=== PATIENT | female | born 1960 | race American Indian/Alaskan Native ===

== ENCOUNTER 2020-09-19 09:14 | Outpatient (CLI) | payer OTHER | END 2020-09-19 09:15 | disposition home or self-care (01) | LOC: PF 09:14 | PROVIDERS: ATTEND Internal Medicine | DX: I10 Essential (primary) hypertension (principal); E11.9 Type 2 diabetes mellitus without complications; J45.909 Unspecified asthma, uncomplicated; I63.9 Cerebral infarction, unspecified; M25.50 Pain in unspecified joint | CPT/HCPCS: 94010; 94729 ==